=== PATIENT | female | born 1995 | race Caucasian/White ===

== ENCOUNTER 2020-11-28 09:32 | Outpatient (REF) | payer OTHER, SELFPAY ==
[2020-11-28 10:03] LABS: Basophils Percent Auto 0.2 % (0-2); Eosinophils Absolute Auto 0.1 X10*3/uL (0.0-0.4); Eosinophils Percent Auto 1.6 % (0-4); Hematocrit 39.1 % (37-47); Imm Gran Abs Auto 0.03 X10*3/uL (0.00-0.03); Imm Gran Pct Auto 0.4 % (0.0-0.4); Lymphocytes Absolute Auto 2.4 X10*3/uL (1.2-4.9); Lymphocytes Percent Auto 28.4 % (20-40); MANUAL DIFF FLAG NO; Mean Corpuscular HGB Conc 33.2 g/dl (31.0-35.0); Mean Corpuscular Hemoglobin 29.6 pg (27.0-33.0); Mean Corpuscular Volume 89.1 fL (80-98); Mean Platelet Volume 8.9 fL (9.4-12.3); Monocytes Absolute Auto 0.5 X10*3/uL (0.1-1.2); Monocytes Percent Auto 6.5 % (2-11); Neutrophils Absolute Auto 5.2 X10*3/uL (2.0-8.3); Neutrophils Percent Auto 62.9 % (45-73); Platelet Count 258 X10*3/uL (160-400); Red Blood Count 4.39 X10*6/uL (4.20-5.50); Red Cell Distribution Width 12.4 % (11.0-16.0); White Blood Count 8.3 X10*3/uL (4.8-10.8)
[2020-11-28 10:50] LABS: Alanine Aminotransferase 37 U/L (0-31); Albumin Level 4.5 g/dL (3.5-5.0); Alkaline Phosphatase 60 U/L (39-117); Anion Gap 10 (12-20); Aspartate Amino Transferase 24 U/L (5-31); Bilirubin Total 0.4 mg/dL (0.0-1.0); Blood Urea Nitrogen 10 mg/dL (9-16); Calcium 9.6 mg/dL (8.4-10.2); Carbon Dioxide 28 mmol/L (22-29); Chloride 104 mmol/L (96-108); Cholesterol 191 mg/dL; Estimated Glomerular Filt Rate > 60; Glucose Fasting 110 mg/dL (60-99); HDL Cholesterol 43 mg/dL; LDL Cholesterol Calculated 120 mg/dl; Potassium 4.8 mmol/L (3.3-5.1); Sodium 137 mmol/L (135-145); Total Protein 7.6 g/dL (6.5-8.0); Triglycerides 140 mg/dL
[2020-11-28 11:09] LABS: Thyroid Stimulating Hormone 0.48 uIU/mL (0.32-4.0)
[2020-11-28 12:17] LABS: Estimated Average Glucose 103 mg/dL; Hemoglobin A1c % 5.2 %
== END 2020-11-28 09:33 | disposition home or self-care (01) ==
LOC: HO.LAB 09:32
PROVIDERS: PCP Internal Medicine; Visit Provider Internal Medicine
DX: Z00.00 Encounter for general adult medical examination without abnormal findings (principal); E28.2 Polycystic ovarian syndrome; E03.9 Hypothyroidism, unspecified; E11.9 Type 2 diabetes mellitus without complications
CPT/HCPCS: 36415; 80053; 80061; 83036; 84443; 85025

== ENCOUNTER 2021-02-17 10:00 | Outpatient (RCR) | payer OTHER, SELFPAY ==
--- NOTE | 2021-01-19 12:41 | MHC.PT.EP ---
[facility] [place] [facility] [place] [facility] [place] [facility] [address] Mercy Escudero [address] [phone] F: [phone] F: [phone] F: [phone] F: [phone] Physical Therapy Plan of Care Date of Evaluation: Date of Surgery: N/A Diagnosis: Pain in unspecified knee Assessment: Pt is a pleasant 25yo F who presents with B knee pain, L>R for about ~1 year. She presents today with current impairments in pain, increased hyper extension B L>R, decreased quad and hip/glute strength, impaired posture and impaired body mechanics. She is limited functionally by prolonged standing, prolonged sitting, squatting, and running. She is an excellent candidate for skilled PT services to address current impairments in order to facilitate return to PLOF. She will be seen 2x/week for 4 weeks and will be reassessed at that time. Frequency and Duration: The patient will be seen 2x/week for 4 weeks Short Term Goals: Pt will be I with [facility] to promote self management of symptoms Pt will report pain < 4 / 10 after functional mobility Pt will demonstrate a decrease in hyper extending knees throughout static standing Fdc Goals: Pt will demonstrate 5/5 quad strength B to assist with standing functional tasks and stair navigation Pt will tolerate standing and walking > 1 hour without pain to assist work related tasks Pt will demonstrate improvements in functional mobility as evidenced by statistically significant improvement in LEFI outcome measure Treatment Plan: Modalities to reduce pain, spasms and effusion. Manual therapy to restore motion and function. Therapeutic exercise to improve strength and flexibility. Neuromuscular re-education for posture and balance. Therapeutic activities to return to functional activities of daily living. Electronically signed by: Lexus Basurto, PT, DPT Please sign and return to therapist. Thank you for your referral.
--- NOTE | 2021-03-18 15:38 | MHC.PT.DC ---
[facility] [place] Office [place] Office [place] [facility] [address] Mercy Escudero [address] [phone] F: [phone] F: [phone] F: [phone] F: [phone] Physical Therapy Discharge Report Diagnosis: Pain in unspecified knee Date of Surgery: N/A Date of Evaluation: 01/19/21 Date of Discharge: 03/18/21 Treatments to Date: 5 Cancellations to Date: 4 No Shows to Date: Discharge Status: Improved Function Discharge Summary: Pt attended skilled PT from 01/19/21-02/17/21. Her last attended appointment was 02/17/21. She was making excellent progress with PT and had a decrease in pain and improvement in function. She was anticipated to be D/C to [facility]P her next scheduled appointment however she cancelled that appointment and did not reschedule. Pt is being D/C from skilled PT services at this time. Pt current level of function unknown at this time. Electronically signed by: Lexus Basurto, PT, DPT Please sign and return to therapist. Thank you for your referral.
== END 2021-03-18 15:38 | disposition home or self-care (01) ==
LOC: HO.PT 10:00
PROVIDERS: PCP Internal Medicine; Visit Provider Internal Medicine
DX: M25.562 Pain in left knee (principal)
CPT/HCPCS: 97110; 97161; 97530